=== PATIENT | male | born 1960 | race Two or more races ===

== ENCOUNTER 2025-08-09 08:26 | Emergency (ER) | payer MEDICAID, MEDICARE ==
[~2025-08-09] VITALS: Ht 172.7 cm; Wt 78.8 kg
[2025-08-09 08:34] VITALS: TEMP 98.3
[2025-08-09] MEDS ORDERED: DIPH25CA66 PO (08:49)
[2025-08-09] MEDS ORDERED: METH4PAK PO (08:49)
--- NOTE | 2025-08-09 09:16 | ED.PDOC ---
History of Present Illness(SKN HPI Comments 64 y/o M, presents to the ED for CC of rash. Patient states he had a hernia repair in [place], [place] x1 week ago and was told to wear an abdominal binder however, has now developed a rash d/t this. Patient relays, that rash is spread across abdomen and back and worsens while wearing post-surgical binder. Patient denies shortness of breath, chest pain, swelling erythema, or drainage of purulent fluid. No other symptoms or modifying factors are present at this time. Chief Complaint: Rash Time Seen by MD: 08:45 History of Present Illness: Nurses Notes, Medications, Allergies Allergies: Coded Allergies: NO KNOWN ALLERGIES (Unverified , 08/09/25) Home Meds Active Scripts Diphenhydramine Hcl (Benadryl Allergy) 25 Mg Cap, 25 MG PO BID for 5 Days, #10 CAP Prov:HEIDI MAGANA MD 08/09/25 Methylprednisolone (Medrol Dosepak) 4 Mg Tyler, 4 MG PO UD, #21 TAB UAD Prov:HEIDI MAGANA MD 08/09/25 Information Source: Patient Mode of Arrival: Ambulatory Severity: Moderate Timing: Weeks Duration: Since onset Prehospital treatment: None Location: Abdomen, Back Developed: Pruritus, Rash Object: Other (abdominal binder) Associated Signs and Symptoms: None Past Medical History PAST MEDICAL HISTORY: Denies Surgical History: Hernia Repair Family History Family History: Unknown Social History Smoker: Non-Smoker Alcohol: Denies ETOH Use Drugs: Denies Drug Use Lives In: Home Constitutional: denies: chills, diaphoresis, fatigue, fever, malaise, sweats, weakness, others EENTM: denies: blurred vision, double vision, ear bleeding, ear discharge, ear drainage, ear pain, ear ringing, eye pain, eye redness, hearing loss, mouth pain, mouth swelling, nasal discharge, nose bleeding, nose congestion, nose pain, photophobia, tearing, throat pain, throat swelling, voice changes, others Respiratory: denies: cough, hemoptysis, orthopnea, SOB at rest, shortness of breath, SOB with excertion, stridor, wheezing, others Cardiovascular: denies: chest pain, dizzy spells, diaphoresis, Dyspnea on exertion, edema, irregular heart beat, left arm pain, lightheadedness, palpitations, PND, syncope, others Gastrointestinal: denies: abdomen distended, abdominal pain, blood streaked bowels, constipated, diarrhea, dysphagia, difficulty swallowing, hematemesis, melena, nausea, poor appetite, poor fluid intake, rectal bleeding, rectal pain, vomiting, others Genitourinary: denies: burning, dysuria, flank pain, frequency, hematuria, incontinence, penile discharge, penile sore, pain, testicle pain, testicle swelling, urgency, others Neurological: denies: dizziness, fainting, headache, left sided numbness, left sided weakness, numbness, paresthesia, pre-existing deficit, right sided numbness, right sided weakness, seizure, speech problems, tingling, tremors, weakness, others Musculoskeletal: denies: back pain, gout, joint pain, joint swelling, muscle pain, muscle stiffness, neck pain, others Integumetry: reports: rash; denies: bruises, change in color, change in hair/nails, dryness, laceration, lesions, lumps, wounds, others Allergic/Immunocompromised: denies: Difficulty Healing, Frequent Infections, Hives, Itching, others Hematologic/Lymphatic: denies: anemia, blood clots, easy bleeding, easy bruising, swollen glands, others Endocrine: denies: excessive hunger, excessive sweating, excessive thirst, excessive urination, flushing, intolerance to cold, intolerance to heat, unexplained weight gain, unexplained weight loss, others Psychiatric: denies: anxiety, bipolar disorder, depression, hopeless, panic disorder, schizophrenia, sleepless, suicidal, others All Other Systems: Reviewed and Negative Physical Exam General Appearance: Mild Distress HEENT: Normal ENT Inspection, Pharynx Normal, TMs Normal Neck: Full Range of Motion, Non-Tender, Normal, Normal Inspection Respiratory: Chest Non-Tender, Lungs Clear, No Accessory Muscle Use, No Respiratory Distress, Normal Breath Sounds Cardiovascular: No Edema, No JVD, No Murmur, No Gallop, Normal Peripheral Pulses, Regular Rate/Rhythm Breast Exam: Deferred Gastrointestinal: No Organomegaly, Non Tender, No Pulsatile Mass, Normal Bowel Sounds, Soft Genitalia: Deferred Pelvic: Deferred Rectal: Deferred Extremities: No calf tenderness, Normal capillary refill, Normal inspection, Normal range of motion, Non-tender, No pedal edema Musculoskeletal : Apperance: Normal Neurologic: Alert, briquetter operator II-XII nml as Tested, No Motor Deficits, Normal Affect, Normal Mood, No Sensory Deficits Cerebellar Function: Normal Reflexes: Normal Skin: Dry, Normal Color, Rash (Redness to the abdomen and truncal area consistent with a contact allergic reaction), Warm Lymphatic: No Adenopathy Was a procedure done? Was a procedure done?: No Differential Diagnosis (INTG) Differential Diagnosis: N/A Differential Diagnosis: Contact Dermatitis X-Ray, Labs, Meds, VS Vital Signs Date Time Temp Pulse Resp B/P (MAP) Pulse Ox O2 Delivery O2 Flow Rate FiO2 08/09/25 09:23 85 18 96 Room Air 08/09/25 09:23 85 18 128/89 (102) 96 08/09/25 08:34 98.3 85 16 152/91 95 98.3 The patient was given Benadryl as well as Medrol Dosepak The patient is being discharged the patient was told to wear his wrap over his shirt to prevent skin contact The patient was also told to follow up with the primary care doctor or surgeon tomorrow The patient will return to the emergency department's condition worsens. The patient has no shortness a breath or wheezing at this time Time of 1ST Reevaluation: 09:15 Reevaluation 1ST: Unchanged Patient Education/Counseling: Diagnosis, Treatment, Prognosis, Need For Follow Up Family Education/Counseling: No Family Present SEPSIS Sepsis Screen Date sepsis recognized/suspect: Aug 09, 2025 Time Sepsis recognized/suspect: 0835 Recent Procedure: No On Antibiotic Therapy: No Respiratory Rate >20: No Heart Rate >90: Yes Temp<36 C (96.8 F) or >38.3 C: No SBP <90 or MAP <65 mmHG: No New Acute Mental Status Change: No Is the patient on CPAP, BIPAP,: No Vital Signs Date Time Temp Pulse Resp B/P (MAP) Pulse Ox O2 Delivery O2 Flow Rate FiO2 08/09/25 09:23 85 18 96 Room Air 08/09/25 09:23 85 18 128/89 (102) 96 08/09/25 08:34 98.3 85 16 152/91 95 98.3 Departure 1 Departure Time of Disposition: 09:39 Impression: Primary Impression: Acute allergic reaction Qualified Codes: T78.40XA - Allergy, unspecified, initial encounter Disposition: HOME / SELF CARE / HOMELESS Condition: Fair e-Prescriptions Diphenhydramine Hcl (Benadryl Allergy) 25 Mg Cap 25 MG PO BID for 5 Days, #10 CAP Prov: HEIDI MAGANA MD 08/09/25 Methylprednisolone (Medrol Dosepak) 4 Mg Tyler 4 MG PO UD, #21 TAB UAD Prov: HEIDI MAGANA MD 08/09/25 Discharged With: Self Critical Care Note Critical Care Time?: No Stability Stability form required: No Heart Score Heart Score: Heart Score Response (Comments) Value History N/A 0 EKG N/A 0 Age N/A 0 Risk Factors N/A 0 Troponin N/A 0 Total 0 I personally scribed for HEIDI MAGANA MD ([email or web address]) on 08/09/25 at 09:16. Electronically submitted by Joan Blood ([email or web address]). HEIDI MAGANA MD Aug 09, 2025 09:16
[2025-08-09 09:23] VITALS: BP 128/89; PULSE 85; RESP 18; O2SAT 96
== END 2025-08-09 10:00 | disposition home or self-care (01) ==
LOC: ER 08:26
DX: T78.49XA Other allergy, initial encounter (principal); Z98.890 Other specified postprocedural states; X58.XXXA Exposure to other specified factors, initial encounter